=== PATIENT | male | born 2000 | race Caucasian/White ===

== ENCOUNTER → 2022-01-20 | Outpatient (CLI) | payer BC | LOC: M WUC 14:13 | PROVIDERS: ATTEND Nurse Practitioner Family | DX: L40.0 Psoriasis vulgaris (principal) ==

== ENCOUNTER 2024-05-05 07:46 | Emergency (ER) | payer OTHER ==
[~2024-05-05] VITALS: Ht 180.3 cm; Wt 73.2 kg
[~2024-05-05 07:46] MED LIST: RISA150S2 SQ
[2024-05-05] MEDS: RABIES VACCINE HUMAN 2.5 INTERNATIONAL UNITS/ML VIAL IM ONE (09:39)
[2024-05-05 10:27] VITALS: BP 113/69; TEMP 98.4; O2SAT 100
== END 2024-05-05 10:29 | disposition home or self-care (01) ==
LOC: MERGE 07:46 → M ED 07:46
DX: Z29.14 Encounter for prophylactic rabies immune globulin (principal); Z23 Encounter for immunization; Z79.899 Other long term (current) drug therapy

== ENCOUNTER 2024-05-12 07:35 | Emergency (ER) | payer OTHER ==
[~2024-05-12] VITALS: Ht 180.3 cm; Wt 72.8 kg
[2024-05-12] MEDS: RABIES VACCINE HUMAN 2.5 INTERNATIONAL UNITS/ML VIAL IM ONE (09:41)
[2024-05-12 09:47] VITALS: BP 124/65; TEMP 97; O2SAT 100
== END 2024-05-12 10:07 | disposition home or self-care (01) ==
LOC: M ED 07:35
DX: Z20.3 Contact with and (suspected) exposure to rabies (principal); Z23 Encounter for immunization

== ENCOUNTER 2024-05-26 07:26 | Emergency (ER) | payer OTHER ==
[~2024-05-26] VITALS: Ht 180.3 cm; Wt 73.7 kg
[2024-05-26 07:26] VITALS: BP 115/60; TEMP 97.2; O2SAT 99
[2024-05-26] MEDS: RABIES VACCINE HUMAN 2.5 INTERNATIONAL UNITS/ML VIAL IM ONE (09:21)
== END 2024-05-26 09:41 | disposition home or self-care (01) ==
LOC: M ED 07:26
DX: Z20.3 Contact with and (suspected) exposure to rabies (principal); Z23 Encounter for immunization; M67.441 Ganglion, right hand; Z79.899 Other long term (current) drug therapy

== ENCOUNTER → 2024-06-26 | Outpatient (REF) | payer OTHER | LOC: M LABDRWAD 17:17 | PROVIDERS: ATTEND Physician Assistant Medical | DX: Z20.3 Contact with and (suspected) exposure to rabies (principal) ==

== ENCOUNTER → 2025-08-07 | Outpatient (CLI) | payer OTHER ==
[2025-08-07 13:41] LABS: BASO # 0.0 10^3/uL (0.0-0.2); BASO % 0.5 % (0.0-1.0); EOS # 0.1 10^3/uL (0.0-0.5); EOS % 1.3 % (0.0-3.0); LYMPH # 2.6 10^3/uL (1.5-5.0); LYMPH % 29.1 % (24.0-44.0); MONO # 0.5 10^3/uL (0.0-0.8); MONO % 6.1 % (2.0-8.0); NEUTROPHILS # 5.5 10^3/uL (1.5-8.5); NEUTROPHILS % 62.7 % (36.0-66.0); PLATELET COUNT, AUTOMATED 365 10^3/uL (150-450)
[2025-08-07 14:07] LABS: ALT/SGPT 14 U/L (7.0-40); AST/SGOT 16 U/L (<34); CALCIUM LEVEL 9.4 MG/DL (8.5-10.1); CARBON DIOXIDE LEVEL 29 MMOL/L (20-31); CHLORIDE LEVEL 104 MMOL/L (98-107); CREATININE FOR GFR 1.04 MG/DL (0.70-1.30); GLOMERULAR FILTRATION RATE > 90.0 (>60); POTASSIUM SERUM 4.5 MMOL/L (3.5-5.1); SODIUM LEVEL 143 MMOL/L (136-145)
[2025-08-07 14:39] LABS: HIV 1&2 SCREEN NEGATIVE (NEGATIVE)
[2025-08-07 14:47] LABS: HEPATITIS C VIRUS ABY INDEX < 0.02 INDEX (<0.8)
== END ==
LOC: M LABDRWAD 09:48
PROVIDERS: ATTEND Nurse Practitioner Family
DX: Z51.81 Encounter for therapeutic drug level monitoring (principal); L40.0 Psoriasis vulgaris; Z79.899 Other long term (current) drug therapy

== ENCOUNTER 2025-08-20 16:06 | Emergency (ER) | payer BC, OTHER ==
[~2025-08-20] VITALS: Ht 180.3 cm; Wt 105.0 kg
[2025-08-20] MEDS ORDERED: DOXY100C3 (16:11)
[2025-08-20] MEDS ORDERED: CEFI400C (16:11)
[2025-08-20 17:10] LABS: KETONE, URINE AUTO RFX NEGATIVE (NEGATIVE); LEUKOCYTE ESTERASE UR AUTO RFX NEGATIVE (NEGATIVE); MUCUS, URINE RFX SMALL (NEGATIVE); NITRITE, URINE AUTO RFX NEGATIVE (NEGATIVE); RBC, URINE AUTO RFX 1 /HPF (0-3); SQUAM EPITHELIAL CELL UR AURFX 0 /HPF (0-6); WBC, URINE AUTO RFX 1 /HPF (0-3)
[2025-08-20 17:46] VITALS: BP 135/78; TEMP 98.4; O2SAT 97
[2025-08-20 18:07] LABS: Trichomonas vaginalis (AMP) NOT DETECTED (NEGATIVE)
[2025-08-20 18:30] LABS: GC DNA AMPLIFICATION NEGATIVE (NEGATIVE)
== END 2025-08-20 17:47 | disposition home or self-care (01) ==
LOC: M ED 16:06
DX: N50.812 Left testicular pain (principal); N43.2 Other hydrocele; N50.89 Other specified disorders of the male genital organs; Z79.899 Other long term (current) drug therapy

== ENCOUNTER 2025-09-04 08:57 | Emergency (ER) | payer BC, OTHER ==
[~2025-09-04] VITALS: Ht 180.3 cm; Wt 69.8 kg
[~2025-09-04 08:57] MED LIST changes: +CEFI400C; +DOXY100C3
[2025-09-04 10:45] LABS: KETONE, URINE AUTO RFX NEGATIVE (NEGATIVE); LEUKOCYTE ESTERASE UR AUTO RFX NEGATIVE (NEGATIVE); MUCUS, URINE RFX SMALL (NEGATIVE); NITRITE, URINE AUTO RFX NEGATIVE (NEGATIVE); RBC, URINE AUTO RFX 0 /HPF (0-3); SQUAM EPITHELIAL CELL UR AURFX 0 /HPF (0-6); WBC, URINE AUTO RFX 1 /HPF (0-3)
[2025-09-04 11:58] VITALS: BP 135/73; TEMP 96.6; O2SAT 99
[2025-09-04 12:12] LABS: Trichomonas vaginalis (AMP) NOT DETECTED (NEGATIVE)
[2025-09-04 12:36] LABS: GC DNA AMPLIFICATION NEGATIVE (NEGATIVE)
== END 2025-09-04 12:00 | disposition home or self-care (01) ==
LOC: M ED 08:57
DX: N49.2 Inflammatory disorders of scrotum (principal); N50.89 Other specified disorders of the male genital organs; Z79.899 Other long term (current) drug therapy